=== PATIENT | female | born 1955 | race Caucasian/White ===

== ENCOUNTER 2016-08-14 12:52 | Outpatient (CLI) | payer MEDICARE, OTHER | END 2016-08-14 12:53 | disposition home or self-care (01) | DX: Z12.31 Encounter for screening mammogram for malignant neoplasm of breast (principal) ==

== ENCOUNTER 2016-08-14 13:45 | Outpatient (CLI) | payer MEDICARE, OTHER ==
--- NOTE | 2016-08-14 15:39 | Ultrasound Report ---
ULTRASOUND ANTERIOR CHEST: 08/14/2016 CLINICAL INDICATION: Palpable abnormality superficial to the sternum. TECHNIQUE: Real-time scanning was performed with claims customer service representative static images obtained. FINDINGS: Ultrasound of the palpable abnormality identified by the patient was performed. At this site, there is an 1.1 x 1.0 x 0.5 cm lymph node, at the interface between the dermis and the subcutaneous fat. No sonographically suspicious findings are identified. IMPRESSION: SMALL LYMPH NODE, ACCOUNTING FOR THE PALPABLE ABNORMALITY. JOB #: [id number] EXT JOB #:
== END 2016-08-14 23:59 | disposition home or self-care (01) ==
LOC: DI 13:45
PROVIDERS: ATTEND Physician Assistant Medical
DX: M79.9 Soft tissue disorder, unspecified (principal)
CPT/HCPCS: 76604

== ENCOUNTER 2018-07-21 14:38 | Outpatient (CLI) | payer MEDICARE, OTHER ==
--- NOTE | 2018-07-22 09:12 | DEXA Report ---
Reason: OSTEOPOROSIS Procedure Date: 07/21/2018 Accession Number: [id number] / [id number] Procedure: DEX - Dexa Spine and/or Hip CPT Code: FULL RESULT: EXAM: Dexa Spine and/or Hip DATE: 07/21/2018 3:29 PM CLINICAL HISTORY: OSTEOPOROSIS TECHNIQUE: Dual energy x-ray absorptiometry (DXA) was performed on a Grokker System. Regions measured are the AP Spine, femoral neck, and if needed forearm. COMPARISON: None. In accordance with the International Society for Clinical Densitometry (ISCD) guidelines, data from previous exams may be reanalyzed using current recommendations and techniques. This is done to allow a more accurate basis for comparison with the current study. FINDINGS: The data for the lumbar spine is as follows: BMD (g/cm/cm) T-SCORE Z-SCORE REGION L1 1.167 0.3 1.3 L2 1.072 -1.1 -0.1 L3 0.987 -1.8 -0.8 L4 1.115 -0.7 0.3 TOTAL 1.084 -0.8 0.2 NOTE: All evaluable vertebrae are used for classification The data for the hip is as follows: BMD (g/cm/cm) T-SCORE Z-SCORE REGION Neck 0.782 -1.8 -0.8 TOTAL 0.896 -0.9 -0.1 NOTE: The femoral neck or total proximal femur, whichever is lowest, is used for classification. IMPRESSION: THE WHO CLASSIFICATION BASED ON THE INTERNATIONAL REFERENCE STANDARD IS OSTEOPENIA. THE FRACTURE RISK IS INCREASED. RECOMMENDATION: Patients with diagnosis of osteoporosis or osteopenia should have regular bone mineral density assessment. For those eligible for Medicare, routine testing is allowed once every 2 years. Testing frequency can be increased for patients who have rapidly progressing disease or for those who are receiving medical therapy to restore bone mass. COMMENT: World Health Organization (WHO) definitions for osteoporosis and osteopenia: NORMAL BMD: T-score at -1.0 or higher, fracture risk is low OSTEOPENIA BMD: T-score between -1.0 and -2.5, fracture risk is increased. OSTEOPOROSIS BMD: T-score at -2.5 or lower, fracture risk is high. National Osteoporosis Foundation recommends: 1. Obtain adequate dietary calcium (at least 1200 mg per day) and vitamin D (400-800 international units per day). 2. Participate, as appropriate, in regular weightbearing and muscle-strengthening exercise. 3. Avoid tobacco use and reduce alcohol and caffeine intake. 4. For more detailed information see the website at www.NOF.org.
== END 2018-07-21 14:39 | disposition home or self-care (01) ==
LOC: DI 14:38
PROVIDERS: ATTEND Internal Medicine Rheumatology
DX: M85.88 Other specified disorders of bone density and structure, other site (principal)
CPT/HCPCS: 77080

== ENCOUNTER 2018-07-21 14:39 | Outpatient (CLI) | payer MEDICARE, OTHER ==
--- NOTE | 2018-07-22 08:37 | Mammography Report ---
Reason: Annual Screening Procedure Date: 07/21/2018 Accession Number: [id number] / [id number] Procedure: JOEL - Screening Mammo w/Walter CPT Code: FULL RESULT: EXAM: Screening Mammo w/Walter DATE: 07/21/2018 3:12 PM CLINICAL HISTORY: Scanning caliber. No known risk factors. TECHNIQUE: Bilateral CC and MLO views were obtained. COMPARISON: 08/14/2016 and 10/19/2013. FINDINGS: The breasts demonstrate scattered fibroglandular densities bilaterally. No suspicious masses, clustered microcalcifications, or regions of architectural distortion are identified. IMPRESSION: Negative examination RECOMMENDATION: Routine annual screening unless otherwise clinically indicated. BIRADS CATEGORY 1: Negative STANDARD QUALIFYING STATEMENTS: 1. This examination was not reviewed with the aid of Computer-Aided Detection (CAD). 2. A negative or benign imaging report should not preclude biopsy if clinically suspicious findings are present. 3. Dense breasts may obscure an underlying neoplasm. 4. This examination was reviewed with the aid of 3D breast imaging (tomosynthesis).
== END 2018-07-21 14:40 | disposition home or self-care (01) ==
LOC: DI 14:39
DX: Z12.31 Encounter for screening mammogram for malignant neoplasm of breast (principal)
CPT/HCPCS: 77063; 77067

== ENCOUNTER 2019-01-23 11:25 | Outpatient (CLI) | payer MEDICARE, OTHER ==
--- NOTE | 2019-01-25 10:01 | XRAY Report ---
Reason: HAND PAIN Procedure Date: 01/23/2019 Accession Number: [id number] / [id number] Procedure: WCP - Hand 2 View BILAT CPT Code: FULL RESULT: EXAMS: 1. Right Hand Radiography 2. Left Hand Radiography EXAM DATE: 01/23/2019 11:43 AM. CLINICAL HISTORY: Rheumatoid arthritis. Hand pain. COMPARISON: None. TECHNIQUE: 2 views each hand. FINDINGS: Right: Bones: No acute fracture or bony lesion. Mild degenerative spurring. No bony erosions. Joints: 2 fixation screws traverse the right first metacarpophalangeal joint from fusion. Mild joint space narrowing of the DIP and PIP and metacarpophalangeal joints. No dislocation. Soft Tissues: Normal. No soft tissue swelling. Left: Bones: No acute fracture or bony lesion. Mild degenerative spurring. No bony erosions. Joints: Mild joint space narrowing of the DIP and PIP and metacarpophalangeal joints as well as the carpometacarpal joints. No dislocation. Marked degenerative change of left radiocarpal and distal radioulnar joint with apparent intercarpal bony joint fusion. Soft Tissues: Normal. No soft tissue swelling. IMPRESSION: 1. Status post right first metacarpophalangeal joint fusion. 2. Degenerative changes of the right and left hand. 3. Marked degenerative changes of the left wrist with apparent intercarpal bony fusion. RADIA
== END 2019-01-23 11:26 | disposition home or self-care (01) ==
LOC: DI.WCP 11:25
PROVIDERS: ATTEND Internal Medicine Rheumatology
DX: M19.042 Primary osteoarthritis, left hand (principal); M19.041 Primary osteoarthritis, right hand; M19.032 Primary osteoarthritis, left wrist; M24.632 Ankylosis, left wrist; Z98.1 Arthrodesis status; M19.071 Primary osteoarthritis, right ankle and foot; M19.072 Primary osteoarthritis, left ankle and foot

== ENCOUNTER 2019-01-23 11:26 | Outpatient (CLI) | payer MEDICARE, OTHER ==
--- NOTE | 2019-01-25 09:56 | XRAY Report ---
Reason: FOOT PAIN Procedure Date: 01/23/2019 Accession Number: [id number] / [id number] Procedure: WCP - Foot 2 View BILAT CPT Code: FULL RESULT: EXAMS: 1. Right Foot Radiography 2. Left Foot Radiography EXAM DATE: 01/23/2019 11:43 AM. CLINICAL HISTORY: Foot pain. Rheumatoid arthritis. COMPARISON: None. TECHNIQUE: 2 views each foot. FINDINGS: Right: Bones: No acute fracture or bony lesion. No bony erosions. Plantar calcaneal spur. Joints: Normal alignment. Mild degenerative changes of the right midfoot. No dislocation. Soft Tissues: Normal. No soft tissue swelling. Left: Bones: No acute fracture or bony lesion. No bony erosions. Plantar calcaneal spur. Joints: Normal alignment. Mild degenerative changes of the left midfoot. No dislocation. Soft Tissues: Normal. No soft tissue swelling. IMPRESSION: 1. No osseous abnormalities. No bony erosions. 2. Mild degenerative changes of the right and left foot. RADIA
== END 2019-01-23 11:27 | disposition home or self-care (01) ==
LOC: DI.WCP 11:26
PROVIDERS: ATTEND Internal Medicine Rheumatology
DX: M19.072 Primary osteoarthritis, left ankle and foot (principal); M19.071 Primary osteoarthritis, right ankle and foot

== ENCOUNTER 2019-03-31 09:17 | Outpatient (CLI) | payer MEDICARE, OTHER | END 2019-03-31 09:18 | disposition critical access hospital (66) | LOC: EMS 09:17 | PROVIDERS: ATTEND Surgery | DX: R53.81 Other malaise (principal); R53.1 Weakness; H53.8 Other visual disturbances | CPT/HCPCS: A0425; A0429 ==

== ENCOUNTER 2019-03-31 09:36 | Emergency (ER) | payer MEDICARE, OTHER ==
[2019-03-31 10:04] LABS: BASOPHILS % (AUTO) 0.4 %; EOSINOPHILS # (AUTO) 0.2 10^3/uL (0.0-0.7); EOSINOPHILS % (AUTO) 2.4 %; HGB - HEMOGLOBIN 13.3 g/dL (12.0-16.0); LYMPHOCYTES # (AUTO) 1.4 10^3/uL (1.5-3.5); LYMPHOCYTES % (AUTO) 17.5 %; MEAN CORPUSCULAR HEMOGLOBIN 33.2 pg (27.0-31.0); MEAN CORPUSCULAR HGB CONC 33.6 g/dL (32.0-36.0); MEAN CORPUSCULAR VOLUME 98.8 fL (81.0-99.0); MEAN PLATELET VOLUME 8.2 fL (7.9-10.8); MONOCYTES # (AUTO) 0.5 10^3/uL (0.0-1.0); MONOCYTES % (AUTO) 6.4 %; NEUTROPHILS # (AUTO) 5.8 10^3/uL (1.5-6.6); PLT - PLATELET COUNT 252 10^3/uL (130-450); RED BLOOD COUNT 4.01 10^6/uL (4.20-5.40); RED CELL DISTRIBUTION WIDTH 13.6 % (12.0-15.0); WHITE BLOOD COUNT 7.9 x10^3/uL (4.8-10.8)
[2019-03-31 10:11] LABS: BILIRUBIN,URINE NEGATIVE (NEGATIVE); GLUCOSE, URINE (UA) NEGATIVE (NEGATIVE); KETONES,URINE (UA) NEGATIVE (NEGATIVE); LEUKOCYTE ESTERASE, URINE NEGATIVE (NEGATIVE); NITRITE,URINE NEGATIVE (NEGATIVE); OCCULT BLOOD,URINE NEGATIVE (NEGATIVE); PROTEIN,URINE NEGATIVE (NEGATIVE); UROBILINOGEN,URINE 0.2 (NORMAL) E.U./dL (NORMAL)
[2019-03-31 10:13] LABS: CLARITY,URINE CLEAR (CLEAR)
--- NOTE | 2019-03-31 10:15 | ED Physician Documentation ---
PD HPI FOCAL NEURO - Stated complaint Stated Complaint: WEAKNESS - Chief complaint Chief Complaint: General - History obtained from History obtained from: Patient, EMS - History of Present Illness Timing - onset: How many hours ago (3) Timing - details: Waxing and waning Weakness: No: Face, Arm, Hand, Leg, Foot, Right, Left Numbness: No: Face, Arm, Hand, Leg, Foot, Right, Left Associated symptoms: No: Headache, Nausea / vomiting, Seizure, Syncope, Fall, Head injury, Chest pain, Neck pain, Back pain, Fever Contributing factors: negative: Anticoagulated, Vascular dz, Atrial fibrillation, Prosthetic heart valve Baseline status: positive: A&OX3, ambulatory, indep Similar symptoms before: Has not had sx before Recently seen: Clinic - Additional information Additional information: 63-year-old female states that she felt lightheaded and dizzy today, like the room was spinning around her, she also felt near syncopal. This started approximately 720 this morning. She had an appointment with her doctor this morning, went there and was seen. Her primary care provider felt that she may have mild left upper extremity and left lower extremity weakness. Patient states that she does not feel this. No slurred speech. No vision changes. No headache. No chest pain. No palpitations. No difficulty breathing. No nausea or vomiting. She states that she normally feels unsteady first thing in the morning. She states that her unsteadiness today was not worse than usual, but it was the near syncopal feeling that was bothering her. Review of Systems Ten Systems: 10 systems reviewed and negative Constitutional: denies: Fever, Chills Eyes: denies: Decreased vision, Photophobia, Irritation Ears: denies: Ear pain Nose: denies: Rhinorrhea / runny nose, Congestion Throat: denies: Sore throat Cardiac: denies: Chest pain / pressure, Palpitations, Pedal edema, Calf pain Respiratory: denies: Dyspnea, Cough, Hemoptysis, Wheezing GI: denies: Abdominal Pain, Nausea, Vomiting, Diarrhea : denies: Dysuria Skin: denies: Rash Musculoskeletal: denies: Neck pain, Back pain Neurologic: denies: Headache PD PAST MEDICAL HISTORY - Past Medical History Cardiovascular: High cholesterol Respiratory: Sleep apnea Endocrine/Autoimmune: Type 2 diabetes, HyPOthyroidism GI: GERD : None HEENT: None Psych: Depression Musculoskeletal: Rheumatoid arthritis Derm: None - Past Surgical History General: Colonoscopy Ortho: Other /INCLUSION INTERNSHIP: Hysterectomy HEENT: Tonsil/Adenoidectomy - Present Medications Home Medications: Ambulatory Orders Medication Instructions Recorded Confirmed Atorvastatin Calcium [Lipitor] 40 mg PO 11/20/13 11/20/13 Cholecalciferol (Vitamin D3) 2,000 unit PO 11/20/13 11/20/13 [Vitamin D] Clobetasol Propionate [Cormax] 50 ml TP 11/20/13 11/20/13 Cod Liver Oil 473 ml PO 11/20/13 11/20/13 Fluconazole 40 mg PO 11/20/13 11/20/13 Folic Acid 1 gm PO DAILY 11/20/13 11/20/13 Glucosamine Sulfate Dipot Chlr 1,000 mg PO 11/20/13 11/20/13 [Glucosamine] Ibuprofen 800 mg PO 11/20/13 11/20/13 Levothyroxine Sodium [Synthroid] 100 mcg PO 11/20/13 11/20/13 Methocarbamol [Robaxin] 500 mg PO ONCE 11/20/13 11/20/13 Methotrexate Sodium [Methotrexate] 2.5 mg PO 11/20/13 11/20/13 Pantoprazole Sodium [Protonix] 40 mg PO 11/20/13 11/20/13 Meclizine [Antivert] 12.5 - 25 mg PO Q6H #30 tablet 03/31/19 - Allergies Allergies/Adverse Reactions: Allergies Allergy/AdvReac Type Severity Reaction Status Date / Time pseudoephedrine HCl * Allergy Severe Hallucinati Verified 11/20/13 15:05 [From [facility]] ons - Social History Does the pt smoke?: No Smoking Status: Never smoker Does the pt drink ETOH?: No Does the pt have substance abuse?: No PD ED PE NORMAL - Vitals Vital signs reviewed: Yes - General General: Alert and oriented X 3, No acute distress, Well developed/nourished - HEENT HEENT: PERRL, Moist mucous membranes - Neck Neck: Supple, no meningeal sign - Cardiac Cardiac: RRR, Strong equal pulses - Respiratory Respiratory: No respiratory distress, Clear bilaterally - Abdomen Abdomen: Soft, Non tender, Non distended - Back Back: No spinal TTP - Derm Derm: Warm and dry - Extremities Extremities: No edema - Neuro Neuro: Alert and oriented X 3, [employer]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, No motor deficit, No sensory deficit, Normal speech Eye Opening: Spontaneous Motor: Obeys Commands Verbal: Oriented GCS Score: 15 - Psych Psych: Normal mood, Normal affect NIHSS - Time Time: 09:40 - Level of Consciousness Level of consciousness: (0) Alert, Keenly responsive LOC Questions: (0) Answers both Q's correct LOC Commands: (0) Performs both correctly - Gaze Best Gaze: (0) Normal - Visual Visual: (0) No loss - Facial Palsy Facial Palsy: (0) Normal, symmetrical movement - Motor Arms (both separate) Motor Arm (right): (0) No drift Motor Arm (left): (0) No drift - Motor Legs (both separate) Motor Leg (right): (0) No drift Motor Leg (left): (0) No drift - Limb Ataxia Limb Ataxia: (0) Absent - Sensory Sensory: (0) Normal - Best Language Best Language: (0) No aphasia - Dysarthria Dysarthria: (0) Normal - Extinction and Inattention (formally neg Extinction and inattention: (0) No abnormality - Total Score/Results Total Score/Result: 0 Results - Vitals Vitals: Vital Signs - 24 hr 03/31/19 03/31/19 03/31/19 09:40 11:43 12:34 Temperature 36.2 C L Heart Rate 73 77 80 Respiratory 18 18 18 Rate Blood Pressure 172/145 H 153/84 H 134/88 H O2 Saturation 98 98 98 Oxygen O2 Source Room air - EKG (time done) 0948 Rate: Rate (enter#) (71) Rhythm: NSR Lititz: Normal Intervals: Normal ND QRS: Normal Ischemia: T wave inversion (1, aVL, V1-5) Compare to prior EKG: Old EKG unavailable - Labs Labs: Laboratory Tests 03/31/19 03/31/19 03/31/19 09:57 09:57 09:57 WBC 7.9 RBC 4.01 L Hgb 13.3 Hct 39.6 MCV 98.8 MCH 33.2 H MCHC 33.6 RDW 13.6 Plt Count 252 MPV 8.2 Neut # (Auto) 5.8 Lymph # (Auto) 1.4 L Barron # (Auto) 0.5 Eos # (Auto) 0.2 Baso # (Auto) 0.0 Absolute Nucleated RBC 0.00 Nucleated RBC % 0.0 Sodium 140 Potassium 4.0 Chloride 105 Carbon Dioxide 26 Anion Gap 9.0 BUN 15 Creatinine 0.8 Estimated GFR (MDRD) 72 L Glucose 134 H Calcium 9.4 Total Bilirubin 0.7 AST 24 ALT 28 Alkaline Phosphatase 88 Troponin I High Sens 3.0 Total Protein 7.3 Albumin 3.8 Globulin 3.5 Albumin/Globulin Ratio 1.1 Lipase 48 Urine Color Urine Clarity Urine pH Ur Specific [place] Urine Protein Urine Glucose (UA) Urine Ketones Urine Occult Blood Urine Nitrite Urine Bilirubin Urine Urobilinogen Ur Leukocyte Esterase Ur Microscopic Review Urine Culture Comments 03/31/19 10:04 WBC RBC Hgb Hct MCV MCH MCHC RDW Plt Count MPV Neut # (Auto) Lymph # (Auto) Barron # (Auto) Eos # (Auto) Baso # (Auto) Absolute Nucleated RBC Nucleated RBC % Sodium Potassium Chloride Carbon Dioxide Anion Gap BUN Creatinine Estimated GFR (MDRD) Glucose Calcium Total Bilirubin AST ALT Alkaline Phosphatase Troponin I High Sens Total Protein Albumin Globulin Albumin/Globulin Ratio Lipase Urine Color YELLOW Urine Clarity CLEAR Urine pH 7.0 Ur Specific [place] <=1.005 Urine Protein NEGATIVE Urine Glucose (UA) NEGATIVE Urine Ketones NEGATIVE Urine Occult Blood NEGATIVE Urine Nitrite NEGATIVE Urine Bilirubin NEGATIVE Urine Urobilinogen 0.2 (NORMAL) Ur Leukocyte Esterase NEGATIVE Ur Microscopic Review NOT INDICATED Urine Culture Comments NOT INDICATED - Rads (name of study) head CT Radiology: Prelim report reviewed, EMP read contemporaneously, See rad report (No acute intracranial abnormality) PD MEDICAL DECISION MAKING - ED course Complexity details: reviewed results, re-evaluated patient, considered differential, d/w patient, d/w family ED course: 63-year-old female with what sounds like vertigo vs near syncope today. She is ambulating without any difficulty in the emergency department. Normal cerebellar testing. Normal ear to nose, dysdiadochokinesis. No acute findings on head CT, laboratory testing. She is asymptomatic here. We will follow-up with her doctor for further care. Patient counseled regarding signs and symptoms for which I believe and urgent re-evaluation would be necessary. Patient with good understanding of and agreement to plan and is comfortable going home at this time This document was made in part using voice recognition software. While efforts are made to proofread this document, sound alike and grammatical errors may occur. Departure - Departure Disposition: 01 Home, Self Care Clinical Impression: Vertigo Condition: Good Instructions: ED Dizziness UKO Follow-Up: Jackie Dave PA-C [Primary Care Provider] - Within 1 week Prescriptions: Meclizine [Antivert] 12.5 - 25 mg PO Q6H #30 tablet Comments: Return if you worsen. This should improve over the next few days. your testing is normal today. Discharge Date/Time: 03/31/19 12:35
[2019-03-31 10:36] LABS: ALBUMIN 3.8 g/dL (3.2-5.5); ALBUMIN/GLOBULIN RATIO 1.1 (1.0-2.2); BILIRUBIN,TOTAL 0.7 mg/dL (0.2-1.0); CALCIUM 9.4 mg/dL (8.5-10.3); CREATININE 0.8 mg/dL (0.4-1.0); TOTAL PROTEIN 7.3 g/dL (6.7-8.2)
--- NOTE | 2019-03-31 10:53 | CT Report ---
Reason: dizzy Procedure Date: 03/31/2019 Accession Number: [id number] / [id number] Procedure: CT - Head W/O Stroke Protocol CPT Code: FULL RESULT: EXAM: CT HEAD EXAM DATE: 03/31/2019 10:36 AM. CLINICAL HISTORY: Dizziness, hot sweats and blurred vision. COMPARISON: None. TECHNIQUE: Multiaxial CT images were obtained from the foramen magnum to the vertex. Reformats: Sagittal and coronal. IV contrast: None. In accordance with CT protocol optimization, one or more of the following dose reduction techniques were utilized for this exam: automated exposure control, adjustment of mA and/or KV based on patient size, or use of iterative reconstructive technique. FINDINGS: Age-appropriate CT appearance of the brain. No evidence for hemorrhage, stroke, mass or hydrocephalus. No acute sinus or mastoid disease. Borderline findings of bilateral proptosis. IMPRESSION: No CT evidence of acute intracranial abnormality. RADIA The critical test notification system was initiated by Dr. Evan Carrillo at 10:46 AM on 03/31/2019. The above critical test findings were discussed with Kadeem Noel by Dr. Evan Carrillo at 10:50 AM on 03/31/2019.
[2019-03-31] MEDS ORDERED: MECLIZINE 12.5 MG TABLET PO STA (12:13)
[2019-03-31 12:34] VITALS: BP 134/88
== END 2019-03-31 12:35 | disposition home or self-care (01) ==
LOC: EDUNIT# → ED 09:36
DX: R42 Dizziness and giddiness (principal); E11.9 Type 2 diabetes mellitus without complications
CPT/HCPCS: 36415; 70450; 80053; 81003; 83690; 84484; 85025; 93005; 99284; A9270; 81001; 87086

== ENCOUNTER 2019-10-10 10:57 | Outpatient (CLI) | payer MEDICARE, OTHER ==
--- NOTE | 2019-10-10 11:44 | XRAY Report ---
Reason: ACUTE NECK PAIN Procedure Date: 10/10/2019 Accession Number: [id number] / [id number] Procedure: WCP - Cervical Spine 2 View CPT Code: Final Report FULL RESULT: EXAM: CERVICAL SPINE RADIOGRAPHY EXAM DATE: 10/10/2019 10:57 AM. CLINICAL HISTORY: Acute neck pain. COMPARISONS: None. TECHNIQUE: 3 views. FINDINGS: No vertebral body height collapse to indicate fracture. Borderline grade 1 anterolisthesis of C6 on C7 and C7 on T1. Moderate disk space narrowing at C4-C5 and C5-C6 with predominately anterior osteophytic spurring. Mild hypertrophic changes of the uncovertebral joints in the mid cervical spine, slightly more conspicuous on the left. IMPRESSION: Borderline grade 1 anterolisthesis lower cervical spine. Moderate degenerative changes mid to lower cervical spine. RADIA
== END 2019-10-10 10:58 | disposition home or self-care (01) ==
LOC: DI.WCP 10:57
PROVIDERS: ATTEND Physician Assistant Medical
DX: M50.321 Other cervical disc degeneration at C4-C5 level (principal); M47.812 Spondylosis without myelopathy or radiculopathy, cervical region; M43.12 Spondylolisthesis, cervical region
CPT/HCPCS: 72040

== ENCOUNTER 2019-10-11 09:23 | Outpatient (CLI) | payer MEDICARE, OTHER ==
[2019-10-11 12:12] LABS: BASOPHILS % (AUTO) 0.3 %; EOSINOPHILS # (AUTO) 0.2 10^3/uL (0.0-0.7); EOSINOPHILS % (AUTO) 2.8 %; HGB - HEMOGLOBIN 13.6 g/dL (12.0-16.0); LYMPHOCYTES # (AUTO) 1.4 10^3/uL (1.5-3.5); LYMPHOCYTES % (AUTO) 23.4 %; MEAN CORPUSCULAR HEMOGLOBIN 33.7 pg (27.0-31.0); MEAN CORPUSCULAR HGB CONC 33.3 g/dL (32.0-36.0); MEAN PLATELET VOLUME 8.6 fL (7.9-10.8); MONOCYTES # (AUTO) 0.4 10^3/uL (0.0-1.0); MONOCYTES % (AUTO) 7.1 %; NEUTROPHILS # (AUTO) 3.8 10^3/uL (1.5-6.6); NEUTROPHILS % (AUTO) 66.1 %; PLT - PLATELET COUNT 292 10^3/uL (130-450); RED BLOOD COUNT 4.04 10^6/uL (4.20-5.40); RED CELL DISTRIBUTION WIDTH 13.3 % (12.0-15.0); WHITE BLOOD COUNT 5.8 x10^3/uL (4.8-10.8)
[2019-10-11 12:45] LABS: HB2 TOTAL 13.8 g/dL; HEMOGLOBIN A1C 0.55 g/dL; HEMOGLOBIN A1C % 5.8 % (4.6-6.2)
[2019-10-11 12:49] LABS: ALBUMIN 3.9 g/dL (3.2-5.5); ALBUMIN/GLOBULIN RATIO 1.2 (1.0-2.2); ALKALINE PHOSPHATASE 65 IU/L (42-121); ALT ALANINE AMINOTRANSFERASE 40 IU/L (10-60); AST ASPARTATE AMINOTRANSFERASE 30 IU/L (10-42); BILIRUBIN,TOTAL 0.6 mg/dL (0.2-1.0); BUN - BLOOD UREA NITROGEN 11 mg/dL (6-20); CARBON DIOXIDE - CO2 25 mmol/L (21-32); CHLORIDE 105 mmol/L (101-111); CHOL/HDL RATIO 7.4 (<4.4); CHOLESTEROL 280 mg/dL; CREATININE 0.8 mg/dL (0.4-1.0); GLUCOSE 132 mg/dL (70-100); HDL CHOLESTEROL 38 mg/dL; SODIUM 137 mmol/L (135-145); TOTAL PROTEIN 7.2 g/dL (6.7-8.2)
[2019-10-11 12:51] LABS: CREATININE,URINE 185.4 mg/dL; MICROALBUM/CREATININE RATIO,UR 3.8 ug/mg (<30.0); MICROALBUMIN,URINE 0.7 mg/dL (0-300.0)
[2019-10-11 13:47] LABS: LDL CHOLESTEROL,DIRECT 165 mg/dL; LDLD/HDL RATIO 4.3 (<4.4)
== END 2019-10-11 23:59 | disposition home or self-care (01) ==
LOC: LAB.WCP 09:23
PROVIDERS: ATTEND Physician Assistant Medical
DX: E78.5 Hyperlipidemia, unspecified (principal); E11.9 Type 2 diabetes mellitus without complications; E03.9 Hypothyroidism, unspecified; K21.9 Gastro-esophageal reflux disease without esophagitis
CPT/HCPCS: 36415; 80053; 80061; 82043; 82570; 83036; 83721; 84443; 85025

== ENCOUNTER 2020-09-25 08:00 | Outpatient (CLI) | payer MEDICARE, OTHER ==
[2020-09-25 18:14] LABS: BASOPHILS % (AUTO) 0.6 %; EOSINOPHILS # (AUTO) 0.2 10^3/uL (0.0-0.7); HCT - HEMATOCRIT 38.3 % (37.0-47.0); HGB - HEMOGLOBIN 12.6 g/dL (12.0-16.0); LYMPHOCYTES # (AUTO) 1.3 10^3/uL (1.5-3.5); LYMPHOCYTES % (AUTO) 25.1 %; MEAN CORPUSCULAR HEMOGLOBIN 32.1 pg (27.0-31.0); MEAN CORPUSCULAR HGB CONC 32.9 g/dL (32.0-36.0); MEAN CORPUSCULAR VOLUME 97.5 fL (81.0-99.0); MEAN PLATELET VOLUME 8.7 fL (7.9-10.8); MONOCYTES # (AUTO) 0.4 10^3/uL (0.0-1.0); MONOCYTES % (AUTO) 7.8 %; NEUTROPHILS # (AUTO) 3.3 10^3/uL (1.5-6.6); NEUTROPHILS % (AUTO) 62.1 %; PLT - PLATELET COUNT 260 10^3/uL (130-450); RED BLOOD COUNT 3.93 10^6/uL (4.20-5.40); RED CELL DISTRIBUTION WIDTH 12.3 % (12.0-15.0); WHITE BLOOD COUNT 5.3 x10^3/uL (4.8-10.8)
[2020-09-25 18:36] LABS: ALBUMIN 3.9 g/dL (3.2-5.5); ALBUMIN/GLOBULIN RATIO 1.3 (1.0-2.2); ALKALINE PHOSPHATASE 88 IU/L (42-121); ALT ALANINE AMINOTRANSFERASE 36 IU/L (10-60); AST ASPARTATE AMINOTRANSFERASE 34 IU/L (10-42); BILIRUBIN,TOTAL 0.9 mg/dL (0.2-1.0); BUN - BLOOD UREA NITROGEN 12 mg/dL (6-20); CALCIUM 9.3 mg/dL (8.5-10.3); CARBON DIOXIDE - CO2 24 mmol/L (21-32); CHLORIDE 105 mmol/L (101-111); CHOLESTEROL 167 mg/dL; CREATININE 0.7 mg/dL (0.4-1.0); GFR - MDRD 84 (>89); GLUCOSE 150 mg/dL (70-100); HDL CHOLESTEROL 42 mg/dL; LDL CHOLESTEROL,CALCULATED 64 mg/dL; LDL/HDL RATIO 1.5 (<4.4); POTASSIUM 3.8 mmol/L (3.5-5.0); SODIUM 139 mmol/L (135-145); TRIGLYCERIDES 307 mg/dL; VLDL CHOLESTEROL 61 mg/dL
[2020-09-25 18:38] LABS: THYROID STIMULATING HORMONE 0.18 uIU/mL (0.34-5.60)
[2020-09-25 19:30] LABS: FREE T4 (FREE THYROXINE) 1.89 ng/dL (0.58-1.64)
[2020-09-25 20:26] LABS: ESTIMATED AVERAGE GLUCOSE 128 mg/dL (70-100); HEMOGLOBIN A1c% 6.1 % (4.27-6.07)
[2020-09-26 12:32] LABS: HEPATITIS B SURFACE ANTIGEN NON-REACTIVE (NON-REACTIVE)
[2020-09-26 14:01] LABS: HEPATITIS C ANTIBODY NON-REACTIVE (NON-REACTIVE)
== END 2020-09-25 23:59 | disposition home or self-care (01) ==
LOC: LAB.WCP 08:00
PROVIDERS: ATTEND Physician Assistant Medical
DX: E11.9 Type 2 diabetes mellitus without complications (principal); E03.9 Hypothyroidism, unspecified; M05.79 Rheumatoid arthritis with rheumatoid factor of multiple sites without organ or systems involvement
CPT/HCPCS: 36415; 80053; 80061; 83036; 83721; 84439; 84443; 85025; 85651; 86803; 87340

== ENCOUNTER 2021-01-09 10:46 | Outpatient (CLI) | payer MEDICARE, OTHER ==
--- NOTE | 2021-01-09 12:48 | XRAY Report ---
PROCEDURE: Hip w/Pelvis 2-3V RT INDICATIONS: HIP PAIN, RIGHT TECHNIQUE: AP pelvis with lateral view(s) of the right hip(s). COMPARISON: None. FINDINGS: Bones: No fractures or dislocations. Pelvic ring appears intact. No suspicious bony lesions. Soft tissues: The visualized bowel gas pattern is normal. No suspicious soft tissue calcifications. IMPRESSION: This is a normal study. Reviewed by: Cj Galloway MD on 01/09/2021 12:46 PM PDT Approved by: Cj Galloway MD on 01/09/2021 12:46 PM PDT Station ID: [id number]
--- NOTE | 2021-01-09 12:54 | XRAY Report ---
PROCEDURE: Lumbar Spine 2 View INDICATIONS: LUMBAR RADICULOPATHY TECHNIQUE: 2 views of the lumbar spine were acquired. COMPARISON: None. FINDINGS: Bones: 5 [id number] vertebrae are present. There is disc space narrowing and endplate degenera tive changes at L1-2, L2-3, L4-5, and L5-S1. There is normal bony alignment. The facets at L4-5 and L5-S1 have facet arthrosis. No vertebral body compression fractures. No suspicious bony lesions. Soft tissues: Overlying bowel gas pattern is normal. No suspicious soft tissue calcifications. IMPRESSION: 1. Multilevel degenerative changes and facet arthrosis of the lumbar spine. 2. Degenerative disc disease at L1-2, L2-3, L4-5, and L5-S1. Reviewed by: Damian Snyder on 01/09/2021 12:53 PM PDT Approved by: Damian Snyder on 01/09/2021 12:53 PM PDT Station ID: [id number]
== END 2021-01-09 10:47 | disposition home or self-care (01) ==
LOC: DI.N 10:46
PROVIDERS: ATTEND Physician Assistant Medical
DX: M25.551 Pain in right hip (principal); M47.816 Spondylosis without myelopathy or radiculopathy, lumbar region; M51.36 Other intervertebral disc degeneration, lumbar region

== ENCOUNTER 2021-03-21 14:10 | Outpatient (CLI) | payer MEDICARE, OTHER ==
--- NOTE | 2021-03-21 14:40 | XRAY Report ---
PROCEDURE: Chest 2 View X-Ray INDICATIONS: COUGH TECHNIQUE: 2 view(s) of the chest. COMPARISON: None. FINDINGS: Surgical changes and devices: None. Lungs and pleura: No pleural effusions or pneumothorax. Lungs are clear. Mediastinum: Mediastinal contours are normal. Heart size is normal. Bones and chest wall: No suspicious bony abnormalities. Soft tissues appear unremarkable. IMPRESSION: No acute pulmonary process. Reviewed by: Suri Gonzales MD on 03/21/2021 2:38 PM PDT Approved by: Suri Gonzales MD on 03/21/2021 2:38 PM PDT Station ID: [id number]
== END 2021-03-21 14:11 | disposition home or self-care (01) ==
LOC: DI.N 14:10
PROVIDERS: ATTEND Family Medicine
DX: R05 Cough (principal)

== ENCOUNTER 2021-05-20 13:00 | Outpatient (CLI) | payer MEDICARE, OTHER ==
[2021-05-20] MEDS ORDERED: ALBUTEROL 1 PUFF INH STA (18:18)
== END 2021-05-20 13:01 | disposition home or self-care (01) ==
LOC: RT 13:00
PROVIDERS: ATTEND Family Medicine
DX: R05.9 Cough, unspecified (principal)
CPT/HCPCS: 94060; 94727; 94729

== ENCOUNTER 2021-06-11 13:57 | Outpatient (CLI) | payer MEDICARE, OTHER ==
[2021-06-11 18:27] LABS: BASOPHILS % (AUTO) 0.4 %; EOSINOPHILS # (AUTO) 0.3 10^3/uL (0.0-0.7); EOSINOPHILS % (AUTO) 3.6 %; HCT - HEMATOCRIT 42.7 % (37.0-47.0); HGB - HEMOGLOBIN 14.4 g/dL (12.0-16.0); LYMPHOCYTES # (AUTO) 2.2 10^3/uL (1.5-3.5); LYMPHOCYTES % (AUTO) 28.1 %; MEAN CORPUSCULAR HGB CONC 33.7 g/dL (32.0-36.0); MEAN CORPUSCULAR VOLUME 97.9 fL (81.0-99.0); MEAN PLATELET VOLUME 8.7 fL (7.9-10.8); MONOCYTES # (AUTO) 0.6 10^3/uL (0.0-1.0); NEUTROPHILS # (AUTO) 4.7 10^3/uL (1.5-6.6); NEUTROPHILS % (AUTO) 59.6 %; PLT - PLATELET COUNT 337 10^3/uL (130-450); RED BLOOD COUNT 4.36 10^6/uL (4.20-5.40); RED CELL DISTRIBUTION WIDTH 12.9 % (12.0-15.0); WHITE BLOOD COUNT 7.8 x10^3/uL (4.8-10.8)
[2021-06-11 18:55] LABS: % IRON SATURATION 30 % (20-50); IRON 125 ug/dL (28-170); TOTAL IRON BINDING CAPACITY 421 ug/dL (250-450); TRANSFERRIN 301 mg/dL (192-382)
== END 2021-06-11 23:59 | disposition home or self-care (01) ==
LOC: LAB.WCP 13:57
PROVIDERS: ATTEND Physician Assistant Medical
DX: K21.9 Gastro-esophageal reflux disease without esophagitis (principal); E11.9 Type 2 diabetes mellitus without complications
CPT/HCPCS: 36415; 82728; 83540; 84466; 85025

== ENCOUNTER 2021-07-01 10:55 | Outpatient (CLI) | payer MEDICARE, OTHER ==
[2021-07-01] MEDS ORDERED: IOPAMIDOL-300 100 ML VIAL ONE (11:15)
[2021-07-01 11:52] LABS: CREATININE 0.7 mg/dL (0.4-1.0)
[2021-07-01] MEDS ORDERED: IOPAMIDOL-300 100 ML VIAL IVP ONE (12:55)
--- NOTE | 2021-07-01 18:39 | CT Report ---
PROCEDURE: CHEST W INDICATIONS: CHEST PAIN, CHRONIC COUGH CONTRAST: IV CONTRAST: Optiray 320 ml: 100 PO CONTRAST: *NO PO CONTRAST TECHNIQUE: After the administration of intravenous contrast, 1 mm axial images were acquired from the pulmonary apices through the posterior costophrenic angles. Axial 5 mm soft tissue kernel reconstructions were performed as well as 8 mm axial MIP and coronal and sagittal 5 mm reformations. For radiation dose reduction, the following was used: automated exposure control, adjustment of mA and/or kV according to patient size. COMPARISON: None. FINDINGS: Image quality: Excellent. Lungs and pleura: There is a small subpleural nodule in the left upper lobe measuring 0.4 cm on seri es 4 image 67. There is scarring in the left lower lobe and in the lung apices. No acute consolidatio n. No pleural effusions or pneumothorax. Central and peripheral airways are patent and normal in lon iber. Mediastinum: Heart size is normal. No pericardial effusion. No mediastinal or hilar adenopathy by size criteria. Thoracic aorta and central pulmonary arteries are normal in size. Esophagus is silvia l in caliber. No hiatal hernia. Bones and chest wall: No suspicious bony lesions. No vertebral body compression fractures. No axil aissatou or supraclavicular adenopathy by size criteria. The thyroid demonstrates no discrete nodule. Abdomen: Visualized upper abdomen demonstrates hypoattenuation of the liver compatible with fatty in filtration. IMPRESSION: 1. No acute consolidation. 2. Small left upper lobe 4 mm nodule. If patient is high risk of malignancy, recommend a followup CT in 12 months to demonstrate stability. Reviewed by: Ru Davidson MD on 07/01/2021 5:37 PM [facility] Approved by: Ru Davidson MD on 07/01/2021 5:37 PM [facility] Station ID: [id number]
== END 2021-07-01 10:56 | disposition home or self-care (01) ==
LOC: DI 10:55
PROVIDERS: ATTEND Physician Assistant Medical
DX: R07.9 Chest pain, unspecified (principal); R05.3 Chronic cough; R91.1 Solitary pulmonary nodule
CPT/HCPCS: 36415; 71260; 82565; Q9967

== ENCOUNTER 2022-04-28 09:41 | Outpatient (CLI) | payer MEDICARE, OTHER ==
--- NOTE | 2022-04-28 17:31 | XRAY Report ---
PROCEDURE: Foot 2 View RT INDICATIONS: R FOOT PX TECHNIQUE: 2 views of the foot were acquired. COMPARISON: 01/23/2019, 05/24/2014 FINDINGS: Bones: No fractures or dislocations. Mild osteoarthritic changes are noted throughout right foot. Sm all plantar calcaneal enthesophyte is seen. No suspicious bony lesions. Soft tissues: No tibiotalar joint effusion. Achilles tendon appears normal. IMPRESSION: Mild right foot osteoarthritis. No fracture or dislocation. Small calcaneal enthesophyte. Reviewed by: Iraj Tse MD on 04/28/2022 5:30 PM PDT Approved by: Iraj Tse MD on 04/28/2022 5:30 PM PDT Station ID: [id number]
== END 2022-04-28 09:42 | disposition home or self-care (01) ==
LOC: DI.N 09:41
PROVIDERS: ATTEND Nurse Practitioner
DX: M19.071 Primary osteoarthritis, right ankle and foot (principal); M77.31 Calcaneal spur, right foot

== ENCOUNTER 2022-11-23 09:56 | Outpatient (CLI) | payer MEDICARE, OTHER ==
[2022-11-23 10:13] LABS: BASOPHILS % (AUTO) 0.3 %; EOSINOPHILS # (AUTO) 0.1 10^3/uL (0.0-0.7); HCT - HEMATOCRIT 39.6 % (37.0-47.0); HGB - HEMOGLOBIN 13.3 g/dL (12.0-16.0); LYMPHOCYTES # (AUTO) 1.7 10^3/uL (1.5-3.5); LYMPHOCYTES % (AUTO) 29.5 %; MEAN CORPUSCULAR HEMOGLOBIN 31.7 pg (27.0-31.0); MEAN CORPUSCULAR HGB CONC 33.6 g/dL (32.0-36.0); MEAN CORPUSCULAR VOLUME 94.5 fL (81.0-99.0); MEAN PLATELET VOLUME 8.2 fL (7.9-10.8); MONOCYTES # (AUTO) 0.5 10^3/uL (0.0-1.0); MONOCYTES % (AUTO) 8.3 %; NEUTROPHILS # (AUTO) 3.5 10^3/uL (1.5-6.6); NEUTROPHILS % (AUTO) 60.6 %; PLT - PLATELET COUNT 265 10^3/uL (130-450); RED BLOOD COUNT 4.19 10^6/uL (4.20-5.40); RED CELL DISTRIBUTION WIDTH 12.2 % (12.0-15.0); WHITE BLOOD COUNT 5.8 x10^3/uL (4.8-10.8)
[2022-11-23 10:18] LABS: ALBUMIN 3.9 g/dL (3.2-5.5); ALBUMIN/GLOBULIN RATIO 1.5 (1.0-2.2); BILIRUBIN,TOTAL 0.8 mg/dL (0.2-1.0); CALCIUM 9.1 mg/dL (8.5-10.3); CREATININE 0.8 mg/dL (0.4-1.0); POTASSIUM 4.1 mmol/L (3.5-5.0); TOTAL PROTEIN 6.5 g/dL (6.7-8.2)
== END 2022-11-23 09:57 | disposition home or self-care (01) ==
LOC: LAB 09:56
PROVIDERS: ATTEND Internal Medicine Rheumatology
DX: M06.9 Rheumatoid arthritis, unspecified (principal)
CPT/HCPCS: 36415; 80053; 85025; 85651

== ENCOUNTER 2022-12-15 09:22 | Outpatient (CLI) | payer MEDICARE, OTHER ==
[2022-12-15 10:02] LABS: ALBUMIN 3.8 g/dL (3.2-5.5); ALBUMIN/GLOBULIN RATIO 1.2 (1.0-2.2); ALKALINE PHOSPHATASE 74 IU/L (42-121); ALT ALANINE AMINOTRANSFERASE 22 IU/L (10-60); AST ASPARTATE AMINOTRANSFERASE 22 IU/L (10-42); BILIRUBIN,TOTAL 0.8 mg/dL (0.2-1.0); BUN - BLOOD UREA NITROGEN 17 mg/dL (6-20); CALCIUM 9.2 mg/dL (8.5-10.3); CARBON DIOXIDE - CO2 28 mmol/L (21-32); CHLORIDE 103 mmol/L (101-111); CHOL/HDL RATIO 3.7 (<4.4); CHOLESTEROL 171 mg/dL; CREATININE 0.8 mg/dL (0.4-1.0); GFR - MDRD 71 (>89); GLUCOSE 156 mg/dL (70-100); HDL CHOLESTEROL 46 mg/dL; LDL CHOLESTEROL,CALCULATED 80 mg/dL; LDL/HDL RATIO 1.7 (<4.4); SODIUM 139 mmol/L (135-145); TOTAL PROTEIN 7.1 g/dL (6.7-8.2); TRIGLYCERIDES 223 mg/dL; VLDL CHOLESTEROL 45 mg/dL
[2022-12-15 10:11] LABS: THYROID STIMULATING HORMONE 0.79 uIU/mL (0.34-5.60)
[2022-12-15 11:56] LABS: ESTIMATED AVERAGE GLUCOSE 128 mg/dL (70-100); HEMOGLOBIN A1c% 6.1 % (4.27-6.07)
== END 2022-12-15 09:23 | disposition home or self-care (01) ==
LOC: LAB 09:22
PROVIDERS: ATTEND Physician Assistant Medical
DX: E11.9 Type 2 diabetes mellitus without complications (principal); E03.9 Hypothyroidism, unspecified
CPT/HCPCS: 36415; 80053; 80061; 83036; 83721; 84443

== ENCOUNTER 2023-02-16 12:52 | Outpatient (CLI) | payer MEDICARE, OTHER ==
--- NOTE | 2023-02-17 09:24 | Mammography Report ---
BILATERAL DIGITAL SCREENING MAMMOGRAM 3D/2D: 02/16/2023 CLINICAL: Routine screening. Comparison is made to exams dated: 07/16/2021 mammogram - [facility], 07/21/2018 mammogram, 2016 mammogram, and 10/19/2013 mammogram - [facility]. There are scattered areas of fibroglandular density in both breasts (category b / 25%-50% glandular t issue). No significant masses, calcifications, or other findings are seen in either breast. There has been no significant interval change. IMPRESSION: NEGATIVE There is no mammographic evidence of malignancy. A 1 year screening mammogram is recommended. Based on the Tyrer Cuzick model (a risk assessment model) the patients lifetime risk is 3.9% and her 10 year risk is 2.1%. According to the ACR, ACS, and NCCN guidelines, an annual breast MRI exam carrie g with mammogram is recommended if the patients lifetime risk is 20% or greater. This exam was interpreted at Station ID: [id number]. NOTE: For mammograms, a report in lay terms will be sent to the patient. Approximately 15% of breast malignancies will not be visualized mammographically. In the management of a palpable breast mass, a negative mammogram must not discourage biopsy of a clinically suspicious lesion. Electronically Signed By: Opal lugo/jerry:02/16/2023 17:43:21 letter sent: No_Letter ACR BI-RADS Category 1: Negative 3341F PARENCHYMAL PATTERN: (A) - The breast(s) demonstrate(s) scattered fibroglandular densities. BI-RADS CATEGORY: (1) - 1 Mammogram [id number] 1 year screening LATERALITY: (B)
== END 2023-02-16 12:53 | disposition home or self-care (01) ==
LOC: DI 12:52
DX: Z12.31 Encounter for screening mammogram for malignant neoplasm of breast (principal)

== ENCOUNTER 2023-02-16 12:53 | Outpatient (CLI) | payer MEDICARE, OTHER ==
--- NOTE | 2023-02-16 16:51 | CT Report ---
PROCEDURE: CHEST WO INDICATIONS: LUNG NODULE TECHNIQUE: Noncontrast 1mm axial images were acquired from the pulmonary apices to the posterior costophrenic an gles. Axial 5 mm soft tissue kernel reconstructions were performed as well as 8 mm axial MIP and cor onal and sagittal 5 mm reformations. For radiation dose reduction, the following was used: automate d exposure control, adjustment of mA and/or kV according to patient size. COMPARISON: CT chest 05/01/2021 FINDINGS: Image quality: Excellent. Lungs and pleura: No consolidation. No pleural effusions. No pneumothorax. 4 mm subpleural nodule is seen in the posterior left upper lobe (90/4), not significantly changed. 4 mm nodule is seen in the lateral right middle lobe (157/4), not significantly changed. Mediastinum: Heart size is normal. No pericardial effusion. Mild coronary artery calcifications. No l arge vessel abnormality. No mediastinal adenopathy by size criteria. Chest wall and lower neck: Thyroid is unremarkable. No axillary or supraclavicular adenopathy by size . Bones: No aggressive osseous abnormality. Upper Abdomen: Unremarkable. IMPRESSION: 1.Stable 4 mm pulmonary nodules, which are considered benign. 2.No acute abnormality in chest. Reviewed by: Olu Ochoa MD on 02/16/2023 4:50 PM PDT Approved by: Olu Ochoa MD on 02/16/2023 4:50 PM PDT Station ID: [id number]
--- NOTE | 2023-02-17 10:46 | DEXA Report ---
PROCEDURE: Dexa Spine and/or Hip INDICATIONS: POST MENOPAUSAL TECHNIQUE: Dual energy x-ray absorptiometry (DXA) was performed on a imbookin (Pogby) System. Regions measur ed are the AP Spine, femoral neck, and if needed forearm. COMPARISON: 07/21/2018 FINDINGS: Lumbar Spine: Bone Mineral Density 1.052 g/cm/cm,T score -1.1. Since the most recent prior study, there has been a statistically significant decrease in bone mineral density by 3.0 percent. Left Femoral Neck: Bone Mineral Density 0.764 g/cm/cm, T score -2.0. Previous T score -1.8. Left Hip: Bone Mineral Density 0.883 g/cm/cm,T score -1.0. There has been no statistically significant change i n bone mineral density since the prior study. (T score greater or equal to -1.0: NORMAL) (T score from -1.1 to -2.4: OSTEOPENIA) (T score less than or equal to -2.5 to: OSTEOPOROSIS) Impression: By WHO criteria, this patient has low bone density (osteopenia). Interval statistical decrease in bone mineral density of the lumbar spine. No statistical interval ch zulay in bone mineral density of the hip. Patients with diagnosis of osteoporosis or osteopenia should have regular bone mineral density assess ment. For those eligible for Medicare, routine testing is allowed once every 2 years. Testing frequ ency can be increased for patients who have rapidly progressing disease or for those who are receivin g medical therapy to restore bone mass. Reviewed by: Olu Oates MD on 02/17/2023 10:44 AM PDT Approved by: Olu Oates MD on 02/17/2023 10:44 AM PDT Station ID: [id number]
== END 2023-02-16 12:54 | disposition home or self-care (01) ==
LOC: DI 12:53
PROVIDERS: ATTEND Physician Assistant Medical
DX: Z78.0 Asymptomatic menopausal state (principal); R91.8 Other nonspecific abnormal finding of lung field; M85.80 Other specified disorders of bone density and structure, unspecified site

== ENCOUNTER 2023-03-24 13:42 | Outpatient (CLI) | payer MEDICARE, OTHER ==
[2023-03-24 14:16] LABS: BASOPHILS % (AUTO) 0.5 %; EOSINOPHILS # (AUTO) 0.1 10^3/uL (0.0-0.7); EOSINOPHILS % (AUTO) 1.4 %; HCT - HEMATOCRIT 42.6 % (37.0-47.0); HGB - HEMOGLOBIN 14.2 g/dL (12.0-16.0); LYMPHOCYTES # (AUTO) 2.6 10^3/uL (1.5-3.5); LYMPHOCYTES % (AUTO) 30.2 %; MEAN CORPUSCULAR HEMOGLOBIN 31.4 pg (27.0-31.0); MEAN CORPUSCULAR HGB CONC 33.3 g/dL (32.0-36.0); MEAN CORPUSCULAR VOLUME 94.2 fL (81.0-99.0); MEAN PLATELET VOLUME 8.1 fL (7.9-10.8); MONOCYTES # (AUTO) 0.8 10^3/uL (0.0-1.0); MONOCYTES % (AUTO) 9.4 %; NEUTROPHILS % (AUTO) 58.3 %; PLT - PLATELET COUNT 304 10^3/uL (130-450); RED BLOOD COUNT 4.52 10^6/uL (4.20-5.40); RED CELL DISTRIBUTION WIDTH 12.4 % (12.0-15.0); WHITE BLOOD COUNT 8.5 x10^3/uL (4.8-10.8)
[2023-03-24 14:29] LABS: ALBUMIN 4.4 g/dL (3.2-5.5); ALBUMIN/GLOBULIN RATIO 1.5 (1.0-2.2); BILIRUBIN,TOTAL 0.7 mg/dL (0.2-1.0); CALCIUM 10.2 mg/dL (8.5-10.3); CREATININE 0.8 mg/dL (0.6-1.3); POTASSIUM 4.7 mmol/L (3.5-4.5); TOTAL PROTEIN 7.4 g/dL (6.4-8.9)
== END 2023-03-24 13:43 | disposition home or self-care (01) ==
LOC: LAB 13:42
PROVIDERS: ATTEND Internal Medicine Rheumatology
DX: M06.9 Rheumatoid arthritis, unspecified (principal)
CPT/HCPCS: 36415; 80053; 85025; 85651

== ENCOUNTER 2023-06-14 08:21 | Outpatient (CLI) | payer MEDICARE, OTHER ==
[2023-06-14 12:37] LABS: ESTIMATED AVERAGE GLUCOSE 143 mg/dL (70-100); HEMOGLOBIN A1c% 6.6 % (4.27-6.07)
[2023-06-14 12:40] LABS: ALBUMIN 4.3 g/dL (3.2-5.5); ALBUMIN/GLOBULIN RATIO 1.7 (1.0-2.2); ALKALINE PHOSPHATASE 88 IU/L (42-121); ALT ALANINE AMINOTRANSFERASE 29 IU/L (10-60); AST ASPARTATE AMINOTRANSFERASE 25 IU/L (10-42); BILIRUBIN,TOTAL 0.6 mg/dL (0.2-1.0); BUN - BLOOD UREA NITROGEN 13 mg/dL (6-20); CALCIUM 9.7 mg/dL (8.5-10.3); CARBON DIOXIDE - CO2 32 mmol/L (21-32); CHLORIDE 102 mmol/L (101-111); CHOL/HDL RATIO 4.2 (<4.4); CHOLESTEROL 183 mg/dL; CREATININE 0.8 mg/dL (0.6-1.3); GFR - MDRD 71 (>89); GLUCOSE 174 mg/dL (74-104); HDL CHOLESTEROL 44 mg/dL; LDL CHOLESTEROL,CALCULATED 73 mg/dL; LDL/HDL RATIO 1.7 (<4.4); POTASSIUM 5.2 mmol/L (3.5-4.5); SODIUM 138 mmol/L (135-145); TOTAL PROTEIN 6.8 g/dL (6.4-8.9); TRIGLYCERIDES 328 mg/dL (48-352); VLDL CHOLESTEROL 66 mg/dL
== END 2023-06-14 08:22 | disposition home or self-care (01) ==
LOC: LAB.N 08:21
PROVIDERS: ATTEND Physician Assistant Medical
DX: E78.5 Hyperlipidemia, unspecified (principal); E11.9 Type 2 diabetes mellitus without complications
CPT/HCPCS: 36415; 80053; 80061; 83036; 83721

== ENCOUNTER 2023-07-21 13:13 | Outpatient (CLI) | payer MEDICARE, OTHER ==
[2023-07-21] MEDS ORDERED: ALBUTEROL 1 PUFF INH STA (15:17)
== END 2023-07-21 13:14 | disposition home or self-care (01) ==
LOC: RT 13:13
PROVIDERS: ATTEND Physician Assistant Medical
DX: R06.09 Other forms of dyspnea (principal)
CPT/HCPCS: 94060; 94729

== ENCOUNTER 2024-01-10 11:19 | Outpatient (CLI) | payer MEDICARE, OTHER ==
--- NOTE | 2024-01-10 13:40 | XRAY Report ---
PROCEDURE: Wrist 3+V LT INDICATIONS: LEFT WRIST PAIN TECHNIQUE: 3 views of the wrist were acquired. COMPARISON: 01/23/2019 FINDINGS: Bones: No fractures or dislocations. Severe degenerative changes of the radiocarpal and distal radio ulnar joints with joint space narrowing and subchondral sclerosis. There is osseous fusion of the car pal bones. No suspicious bony lesions. Diffusely decreased osseous mineralization. Soft tissues: No suspicious soft tissue calcifications or masses. IMPRESSION: 1.No acute bony abnormality. 2.Redemonstration of severe degenerative changes of the radiocarpal and distal radioulnar joints. 3.Apparent fusion of the intercarpal joints is similar to prior. Reviewed by: Shyam Almaguer MD on 01/10/2024 1:39 PM PDT Approved by: Shyam Almaguer MD on 01/10/2024 1:39 PM PDT Station ID: [id number]
== END 2024-01-10 11:20 | disposition home or self-care (01) ==
LOC: DI 11:19
PROVIDERS: ATTEND Physician Assistant Medical
DX: M19.032 Primary osteoarthritis, left wrist (principal)

== ENCOUNTER 2024-03-15 09:54 | Outpatient (CLI) | payer MEDICARE, OTHER ==
[2024-03-15 12:18] LABS: ALBUMIN/GLOBULIN RATIO 1.3 (1.0-2.2); ALKALINE PHOSPHATASE 103 IU/L (42-121); ALT ALANINE AMINOTRANSFERASE 30 IU/L (10-60); AST ASPARTATE AMINOTRANSFERASE 31 IU/L (10-42); BILIRUBIN,TOTAL 1.2 mg/dL (0.2-1.0); BUN - BLOOD UREA NITROGEN 14 mg/dL (6-20); CALCIUM 9.8 mg/dL (8.5-10.3); CARBON DIOXIDE - CO2 28 mmol/L (21-32); CHLORIDE 101 mmol/L (101-111); CHOLESTEROL 147 mg/dL; CREATININE 0.8 mg/dL (0.6-1.3); GFR - MDRD 71 (>89); GLUCOSE 321 mg/dL (74-104); HDL CHOLESTEROL 37 mg/dL; LDL CHOLESTEROL,CALCULATED 51 mg/dL; LDL/HDL RATIO 1.4 (<4.4); POTASSIUM 4.5 mmol/L (3.5-4.5); SODIUM 135 mmol/L (135-145); TOTAL PROTEIN 7.2 g/dL (6.4-8.9); TRIGLYCERIDES 293 mg/dL; VLDL CHOLESTEROL 59 mg/dL
[2024-03-15 12:36] LABS: ESTIMATED AVERAGE GLUCOSE 235 mg/dL (70-100); HEMOGLOBIN A1c% 9.8 % (4.27-6.07)
== END 2024-03-15 09:55 | disposition home or self-care (01) ==
LOC: LAB.N 09:54
PROVIDERS: ATTEND Physician Assistant Medical
DX: E11.9 Type 2 diabetes mellitus without complications (principal)
CPT/HCPCS: 36415; 80053; 80061; 83036; 83721

== ENCOUNTER 2024-04-04 08:03 | Day surgery (SDC) | payer MEDICARE, OTHER ==
[2024-04-04] MEDS: LACTATED RINGERS 1,000 ML IV ONE ×2 (08:24→10:00)
[2024-04-04] MEDS ORDERED: PROPOFOL 500 MG/50 ML 500 MG/50 ML VIAL ONE (08:56)
--- NOTE | 2024-04-04 09:10 | ANESTHESIA ---
Pre-Anesthesia VS, & Labs - Diagnosis hx of polyps - Procedure colonoscopy Vital Signs: Temp Pulse Resp BP Pulse Ox O2 Flow Rate 36.1 C L 90 13 155/95 H 97 04/04/24 08:20 04/04/24 08:20 04/04/24 08:20 04/04/24 08:20 04/04/24 08:20 Height: 5 ft 6 in Weight (kg): 80 kg Body Mass Index: 28.4 BMI Classification: Overweight - NPO >8 hours - Is Patient ?: No - Lab Results Current Lab Results: Laboratory Tests 04/04/24 08:23: POC Whole Bld Glucose 192 H Home Medications and Allergies Home Medications: Ambulatory Orders Glimepiride 1 mg PO DAILY 04/04/24 Ibuprofen See Rx Instructions .ROUTE .COMPLEX 11/20/13 Levothyroxine Sodium [Synthroid] See Rx Instructions .ROUTE .COMPLEX 11/20/13 Albuterol Sulf [Ventolin Hfa Inhaler] See Rx Instructions .ROUTE .COMPLEX 08/11/23 Amlodipine Besylate [Norvasc] See Rx Instructions .ROUTE .COMPLEX 08/11/23 Ascorbic Acid [Vitamin C] See Rx Instructions .ROUTE .COMPLEX 08/11/23 Aspirin [Vazalore] See Rx Instructions .ROUTE .COMPLEX 08/11/23 Calcium Carbonate [Calcium] See Rx Instructions .ROUTE .COMPLEX 08/11/23 FLUoxetine [PROzac] See Rx Instructions .ROUTE .COMPLEX 08/11/23 Loratadine [Allergy Relief] See Rx Instructions .ROUTE .COMPLEX 08/11/23 Losartan [Cozaar] See Rx Instructions .ROUTE .COMPLEX 08/11/23 Multivitamin/Iron/Folic Acid [Centrum Women Tablet] See Rx Instructions .ROUTE .COMPLEX 08/11/23 Nac/Ala/Milk Thistle/Selenomet [Liver Protect Capsule] See Rx Instructions .ROUTE .COMPLEX 08/11/23 Omeprazole Magnesium See Rx Instructions .ROUTE .COMPLEX 08/11/23 Rosuvastatin Calcium [Crestor] See Rx Instructions .ROUTE .COMPLEX 08/11/23 Vitamin E See Rx Instructions .ROUTE .COMPLEX 08/11/23 metFORMIN [Glucophage] See Rx Instructions .ROUTE .COMPLEX 08/11/23 sulfaSALAzine [Sulfasalazine] See Rx Instructions .ROUTE .COMPLEX 08/11/23 Glimepiride 1 mg PO DAILY 04/04/24 Allergies/Adverse Reactions: Allergies Allergy/AdvReac Type Severity Reaction Status Date / Time pseudoephedrine HCl * Allergy Severe Hallucinati Verified 08/12/23 12:39 [facility] ons Anes History & Medical History - Anesthetic History Anesthesia Complications: reports: No previous complications Family history of Anesthesia Complications: Denies Family history of Malignant Hyperthermia: Denies - Medical History Cardiovascular: reports: Hypertension, High cholesterol Pulmonary: reports: None Gastrointestinal: reports: GERD Urinary: reports: None Neuro: reports: None Musculoskeletal: reports: Rheumatoid arthritis Endocrine/Autoimmune: reports: Type 2 diabetes, HyPERthyroidism, HyPOthyroidism Blood Disorders: reports: None Skin: reports: Rosacea, Other Smoking Status: Never smoker Psychosocial: reports: No issues indicated History of Cancer?: No - Surgical History General: reports: Colonoscopy Eyes Ears Nose Throat (EENT): reports: Tonsil/Adenoidectomy Gynecologic: reports: Hysterectomy Orthopedic: reports: Other Dermatologic: reports: Skin cancer surgery Exam General: Alert, Oriented x3, Cooperative Dental: Poor dentition, Other (missing front incisor) Mouth Openin Fingerbreadth Neck Mobility: Normal Mallampati classification: II Thyromental Distance: less than 4 cm Respiratory: Lungs clear Cardiovascular: Regular rate Plan Anesthesia Type: General, Total IV Consent for Procedure(s) Verified and Reviewed: Yes Code Status: Attempt Resuscitation ASA classification: 3-Severe systemic disease Is this case an emergency?: No
[2024-04-04] MEDS ORDERED: LIDOCAINE-PF 2% 10 ML AMP SUBQ ONE (09:14)
[2024-04-04] MEDS ORDERED: PROPOFOL 200 MG/20 ML VIAL IVP ONE (09:46)
[2024-04-04 11:03] VITALS: BP 162/88; O2SAT 99
--- NOTE | 2024-04-04 14:31 | ANESTHESIA POST OP EVALUATION ---
Anesthesia Post Eval - Post Anesthesia Eval Vitals: Last Vital Signs Temp 36 C L 04/04/24 10:30 Pulse 71 04/04/24 10:30 Resp 16 04/04/24 10:30 BP 162/88 H 04/04/24 10:30 Pulse Ox 99 04/04/24 10:30 O2 Flow Rate CV Function Including HR & BP: Stable Pain Control: Satisfactory Nausea & Vomiting: Negative Mental Status: Baseline Respiratory Status: Airway Patent Hydration Status: Satisfactory Anesthesia Complications: None
== END 2024-04-04 08:04 | disposition home or self-care (01) ==
LOC: SDS 08:03
PROVIDERS: ATTEND Surgery
DX: Z12.11 Encounter for screening for malignant neoplasm of colon (principal); R19.5 Other fecal abnormalities; K57.30 Diverticulosis of large intestine without perforation or abscess without bleeding; E11.9 Type 2 diabetes mellitus without complications; Z80.0 Family history of malignant neoplasm of digestive organs; Z86.010 Personal history of colon polyps; Z79.84 Long term (current) use of oral hypoglycemic drugs
CPT/HCPCS: G0105; J7120